=== PATIENT | female | born 1955 | race Two or more races ===

== ENCOUNTER 2019-01-25 17:00 | Outpatient (AMBR) | payer MEDICAID, SELFPAY ==
--- NOTE | 2019-01-08 10:36 | PT.ODAYNRPT ---
PT Outpatient Daily Note Date of Service: January 07, 2019 OP Daily Note Visit Reasons: back pain Outpatient Physical Therapy Treatment Date: 01/07/19 Subjective: Pt reports her back feels about the same as always and the R LE is weak Objective: See F/S for therex Assessment: Pt ambulates without knee flexion likely due to weak quads, decreased neuromuscular activation from the lumbar FX's. Plan: Continue per POC Length of Time (minutes) of Treatment: 30 Minutes Office Procedures PT Procedures PT Date of Service: 01/07/19 Therapeutic Exercise 30 minutes: Yes
--- NOTE | 2019-01-12 18:31 | PTNOTE_ITS ---
PT Outpatient Daily Note Date of Service: January 12, 2019 OP Daily Note Visit Reasons: back pain Outpatient Physical Therapy Treatment Date: 01/12/19 Subjective: Pt reports her back feels about the same as always and the R LE is weak. She brings in MRI disc that was reviewed Objective: See F/S for therex MT: manual cues and perturbations in half-kneeling on foam pad in PBars to improve R LE balance reactions x10' Assessment: Pt ambulates without knee flexion likely due to weak quads, decreased neuromuscular activation from the lumbar FX's. Difficulty with half- kneeling stance with R LE to the front. MRI reveals significant findings of 90 % vertebral body height loss of L2. Plan: Continue per POC Length of Time (minutes) of Treatment: 30 Minutes Office Procedures PT Procedures PT Date of Service: 01/07/19 Therapeutic Exercise 30 minutes: Yes PT Procedures PT Date of Service: 01/12/19 Therapeutic Exercise 15 minutes: Yes Manual Truck Sales Representative 15 minutes: Yes
--- NOTE | 2019-01-25 18:21 | PTNOTE_ITS ---
PT Outpatient Daily Note Date of Service: January 25, 2019 OP Daily Note Visit Reasons: back pain Outpatient Physical Therapy Treatment Date: 01/25/19 Subjective: Pt reports her back feels about the same as always and the R LE is weak. Objective: See F/S for therex MT: manual cues and perturbations in half-kneeling on foam pad in PBars to improve R LE balance reactions x10' Assessment: Pt ambulates without knee flexion likely due to weak quads, decreased neuromuscular activation from the lumbar FX's. Difficulty with half- kneeling stance with R LE to the front. MRI reveals significant findings of 90 % vertebral body height loss of L2. Plan: Continue per POC Length of Time (minutes) of Treatment: 30 Minutes Office Procedures PT Procedures PT Date of Service: 01/07/19 Therapeutic Exercise 30 minutes: Yes PT Procedures PT Date of Service: 01/12/19 Therapeutic Exercise 15 minutes: Yes Manual Fabric Worker Supervisor 15 minutes: Yes PT Procedures PT Date of Service: 01/25/19 Therapeutic Exercise 15 minutes: Yes Manual Fabric Worker Supervisor 15 minutes: Yes
== END 2019-01-28 23:59 | disposition home or self-care (01) ==
PROVIDERS: PCP Internal Medicine Endocrinology, Diabetes & Metabolism; Referring Provider Internal Medicine Endocrinology, Diabetes & Metabolism; Visit Provider Internal Medicine Endocrinology, Diabetes & Metabolism
DX: M81.0 Age-related osteoporosis without current pathological fracture (principal); R53.1 Weakness; R26.2 Difficulty in walking, not elsewhere classified; Z94.4 Liver transplant status; Z96.641 Presence of right artificial hip joint; M54.5 Low back pain
CPT/HCPCS: 97110; 97140

== ENCOUNTER 2019-02-15 17:30 | Outpatient (AMBR) | payer MEDICAID, SELFPAY ==
--- NOTE | 2019-02-02 19:10 | PT.ODAYNRPT ---
PT Outpatient Daily Note Date of Service: February 02, 2019 OP Daily Note Visit Reasons: back pain Outpatient Physical Therapy Treatment Date: 02/02/19 Subjective: About the same as last visit Objective: See F/S for therex Assessment: Good therex tolerance with low tissue irritability today Plan: Continue per POC Length of Time (minutes) of Treatment: 30 Minutes Office Procedures PT Procedures PT Date of Service: 02/02/19 Therapeutic Exercise 30 minutes: Yes
--- NOTE | 2019-02-09 19:07 | PT.ODAYNRPT ---
PT Outpatient Daily Note Date of Service: February 09, 2019 OP Daily Note Pediatric or Adult Patient: Adult PT >13 Visit Reasons: back pain Outpatient Physical Therapy Treatment Date: 02/09/19 Subjective: The LB is hurting a little more today, not sure why Objective: See F/S for therex Assessment: Good therex tolerance with low tissue irritability today but L hip hikes are difficult. Plan: Continue per POC Length of Time (minutes) of Treatment: 30 Minutes Office Procedures PT Procedures PT Date of Service: 02/09/19 Therapeutic Exercise 30 minutes: Yes PT Procedures PT Date of Service: 02/02/19 Therapeutic Exercise 30 minutes: Yes
--- NOTE | 2019-02-15 18:21 | PT.ODAYNRPT ---
PT Outpatient Daily Note Date of Service: February 15, 2019 OP Daily Note Pediatric or Adult Patient: Adult PT >13 Visit Reasons: back pain Outpatient Physical Therapy Treatment Date: 02/15/19 Subjective: Doing ok without significant LBP Objective: See F/S for therex Assessment: Good therex tolerance with low tissue irritability today but L hip hikes are difficult. Plan: Continue per POC Length of Time (minutes) of Treatment: 30 Minutes Office Procedures PT Procedures PT Date of Service: 02/09/19 Therapeutic Exercise 30 minutes: Yes PT Procedures PT Date of Service: 02/02/19 Therapeutic Exercise 30 minutes: Yes PT Procedures PT Date of Service: 02/15/19 Therapeutic Exercise 30 minutes: Yes
== END 2019-02-28 23:59 | disposition home or self-care (01) ==
PROVIDERS: PCP Internal Medicine Endocrinology, Diabetes & Metabolism; Referring Provider Internal Medicine Endocrinology, Diabetes & Metabolism; Visit Provider Internal Medicine Endocrinology, Diabetes & Metabolism
DX: M81.0 Age-related osteoporosis without current pathological fracture (principal); M54.6 Pain in thoracic spine; M54.5 Low back pain; S32.028D Other fracture of second lumbar vertebra, subsequent encounter for fracture with routine healing; R26.2 Difficulty in walking, not elsewhere classified; R53.1 Weakness; X58.XXXD Exposure to other specified factors, subsequent encounter; Z96.641 Presence of right artificial hip joint
CPT/HCPCS: 97110

== ENCOUNTER 2020-01-25 17:00 | Outpatient (AMBR) | payer MEDICAID, SELFPAY ==
--- NOTE | 2020-01-11 17:15 | PT.ODAYNRPT ---
PT Outpatient Daily Note Date of Service: January 11, 2020 OP Daily Note Visit Reasons: back pain Outpatient Physical Therapy Treatment Date: 01/11/20 Subjective: Pt report she has been feeling stronger since starting therapy and has more energy to do things at home Objective: See F/S for therex Assessment: Pt tires easily with light therex but able to do L/S stabilization in supine today with good rotational isometric activation of abdominals. Plan: Continue per POC Length of Time (minutes) of Treatment: 30 Minutes Office Procedures PT Procedures PT Date of Service: 01/11/20 Therapeutic Exercise 30 minutes: Yes
--- NOTE | 2020-01-25 17:13 | PT.ODAYNRPT ---
PT Outpatient Daily Note Date of Service: January 25, 2020 OP Daily Note Pediatric or Adult Patient: Adult PT >13 Visit Reasons: back pain Outpatient Physical Therapy Treatment Date: 01/25/20 Subjective: Pt report she has been feeling stronger since starting therapy and has more energy to do things at home Objective: See F/S for therex Assessment: Pt tires easily with light therex but able to do L/S stabilization in supine today with improving reps into hip abduction. Plan: Continue per POC Length of Time (minutes) of Treatment: 30 Minutes Office Procedures PT Procedures PT Date of Service: 01/25/20 Therapeutic Exercise 30 minutes: Yes PT Procedures PT Date of Service: 01/11/20 Therapeutic Exercise 30 minutes: Yes
== END 2020-01-29 23:59 | disposition home or self-care (01) ==
PROVIDERS: PCP Physician Assistant; Referring Provider Physician Assistant; Visit Provider Internal Medicine Endocrinology, Diabetes & Metabolism
DX: M81.0 Age-related osteoporosis without current pathological fracture (principal); M54.6 Pain in thoracic spine; G89.29 Other chronic pain; R53.1 Weakness; R26.2 Difficulty in walking, not elsewhere classified
CPT/HCPCS: 97110

== ENCOUNTER → 2025-09-30 | Outpatient (CLI) | payer MEDICARE, MEDICAID, SELFPAY ==
[2025-09-30 11:04] LABS: Basophils # (Auto) 0.0 Thou/mm3 (0.0-0.2); Basophils % (Auto) 1 % (0-2.5); Eosinophils # (Auto) 0.1 Thou/mm3 (0.0-0.5); Eosinophils % (Auto) 2 % (0-10); Hematocrit 26.2 % (36.0-46.0); Immature Granulocytes Auto 0.01 Thou/mm3 (0.00-0.00); Lymphocytes # (Auto) 0.6 Thou/mm3 (1.0-4.8); Lymphocytes % (Auto) 12 % (10-50); Mean Corpuscular HGB Conc 29.8 g/dl (31.0-37.0); Mean Corpuscular Hemoglobin 25.7 pg (25.0-35.0); Mean Corpuscular Volume 86 fL (80-100); Monocytes # (Auto) 0.5 Thou/mm3 (0.0-0.8); Monocytes % (Auto) 10 % (0-12); Neutrophils # (Auto) 3.7 Thou/mm3 (1.8-7.7); Neutrophils % (Auto) 75 % (37-80); Nucleated Red Blood Cell # 0.00 Thou/mm3 (0.00-0.00); Nucleated Red Blood Cell % 0 /100 WBC (0); Platelet Count 348 Thou/mm3 (140-440); RDW Standard Deviation 47.9 fL (36.4-46.3); Red Blood Count 3.04 Miln/mm3 (4.00-5.20); White Blood Count 4.9 Thou/mm3 (3.6-11.0)
[2025-09-30 11:15] LABS: Hemoglobin 7.8 g/dL (12.0-16.0)
[2025-09-30 11:16] LABS: Alanine Aminotransferase 16 U/L (10-49); Albumin, Serum 4.1 gm/dL (3.4-4.8); Albumin/Globulin Ratio 2.9 (1.2-2.2); Alkaline Phosphatase 128 U/L (46-116); Anion Gap 10 (7-16); Aspartate Amino Transferase 21 U/L (0-34); BUN/Creatinine Ratio 28 Ratio (12-20); Bilirubin,Total 0.4 mg/dL (0.3-1.2); Blood Urea Nitrogen 25 mg/dL (9-23); Calcium 8.8 mg/dL (8.3-10.6); Calcium (Corrected) 8.8 mg/dL (8.5-10.1); Carbon Dioxide 24.5 mMol/L (20.0-31.0); Chloride 107 mMol/L (98-107); Creatinine (Component) 0.9 mg/dL (0.6-1.3); Globulin 1.4 gm/dL (2.3-3.5); Glucose 137 mg/dL (74-106); Osmolality,Calculated 287 (275-295); Potassium 3.9 mMol/L (3.4-5.1); Sodium 141 mMol/L (136-145); Total Protein 5.5 gm/dL (5.7-8.2); Vancomycin,Trough 19.1 mcg/mL (5.0-10.0); eGFR > 60 See Note
== END | disposition home or self-care (01) ==
PROVIDERS: Referring Provider Internal Medicine; Visit Provider Internal Medicine
DX: Z01.89 Encounter for other specified special examinations (principal)
CPT/HCPCS: 36415; 80053; 80202; 85025

== ENCOUNTER → 2025-10-03 | Outpatient (CLI) | payer MEDICARE, MEDICAID, SELFPAY ==
[2025-10-03 11:18] LABS: Basophils # (Auto) 0.0 Thou/mm3 (0.0-0.2); Basophils % (Auto) 1 % (0-2.5); Eosinophils # (Auto) 0.1 Thou/mm3 (0.0-0.5); Eosinophils % (Auto) 3 % (0-10); Hematocrit 27.3 % (36.0-46.0); Immature Granulocytes Auto 0.02 Thou/mm3 (0.00-0.00); Lymphocytes # (Auto) 0.6 Thou/mm3 (1.0-4.8); Lymphocytes % (Auto) 13 % (10-50); Mean Corpuscular HGB Conc 30.0 g/dl (31.0-37.0); Mean Corpuscular Hemoglobin 25.8 pg (25.0-35.0); Mean Corpuscular Volume 86 fL (80-100); Monocytes # (Auto) 0.6 Thou/mm3 (0.0-0.8); Monocytes % (Auto) 13 % (0-12); Neutrophils # (Auto) 3.4 Thou/mm3 (1.8-7.7); Neutrophils % (Auto) 70 % (37-80); Nucleated Red Blood Cell # 0.00 Thou/mm3 (0.00-0.00); Nucleated Red Blood Cell % 0 /100 WBC (0); Platelet Count 297 Thou/mm3 (140-440); RDW Standard Deviation 47.4 fL (36.4-46.3); Red Blood Count 3.18 Miln/mm3 (4.00-5.20); White Blood Count 4.8 Thou/mm3 (3.6-11.0)
[2025-10-03 11:20] LABS: Hemoglobin 8.2 g/dL (12.0-16.0)
[2025-10-03 11:29] LABS: Alanine Aminotransferase 14 U/L (10-49); Albumin, Serum 4.0 gm/dL (3.4-4.8); Albumin/Globulin Ratio 2.7 (1.2-2.2); Alkaline Phosphatase 133 U/L (46-116); Anion Gap 11 (7-16); Aspartate Amino Transferase 24 U/L (0-34); BUN/Creatinine Ratio 33 Ratio (12-20); Bilirubin,Total 0.5 mg/dL (0.3-1.2); Blood Urea Nitrogen 30 mg/dL (9-23); Calcium 8.7 mg/dL (8.3-10.6); Calcium (Corrected) 8.7 mg/dL (8.5-10.1); Carbon Dioxide 26.0 mMol/L (20.0-31.0); Chloride 104 mMol/L (98-107); Creatinine (Component) 0.9 mg/dL (0.6-1.3); Globulin 1.5 gm/dL (2.3-3.5); Glucose 113 mg/dL (74-106); Osmolality,Calculated 288 (275-295); Potassium 4.1 mMol/L (3.4-5.1); Sodium 141 mMol/L (136-145); Total Protein 5.5 gm/dL (5.7-8.2); Vancomycin,Trough 15.3 mcg/mL (5.0-10.0); eGFR > 60 See Note
== END | disposition home or self-care (01) ==
LOC: SLDO 10:28
PROVIDERS: PCP Internal Medicine; Referring Provider Internal Medicine; Visit Provider Internal Medicine
DX: Z01.89 Encounter for other specified special examinations (principal)
CPT/HCPCS: 36415; 80053; 80202; 85025

== ENCOUNTER → 2025-10-07 | Outpatient (CLI) | payer MEDICARE, MEDICAID, SELFPAY ==
[2025-10-07 10:39] LABS: Basophils # (Auto) 0.1 Thou/mm3 (0.0-0.2); Basophils % (Auto) 1 % (0-2.5); Eosinophils # (Auto) 0.2 Thou/mm3 (0.0-0.5); Eosinophils % (Auto) 4 % (0-10); Hematocrit 27.4 % (36.0-46.0); Immature Granulocytes Auto 0.00 Thou/mm3 (0.00-0.00); Lymphocytes # (Auto) 0.7 Thou/mm3 (1.0-4.8); Lymphocytes % (Auto) 15 % (10-50); Mean Corpuscular HGB Conc 29.9 g/dl (31.0-37.0); Mean Corpuscular Hemoglobin 25.5 pg (25.0-35.0); Mean Corpuscular Volume 85 fL (80-100); Monocytes # (Auto) 0.5 Thou/mm3 (0.0-0.8); Monocytes % (Auto) 12 % (0-12); Neutrophils # (Auto) 3.1 Thou/mm3 (1.8-7.7); Neutrophils % (Auto) 68 % (37-80); Nucleated Red Blood Cell # 0.00 Thou/mm3 (0.00-0.00); Nucleated Red Blood Cell % 0 /100 WBC (0); Platelet Count 235 Thou/mm3 (140-440); RDW Standard Deviation 46.4 fL (36.4-46.3); Red Blood Count 3.22 Miln/mm3 (4.00-5.20); White Blood Count 4.6 Thou/mm3 (3.6-11.0)
[2025-10-07 10:44] LABS: Hemoglobin 8.2 g/dL (12.0-16.0)
[2025-10-07 11:04] LABS: Alanine Aminotransferase 15 U/L (10-49); Albumin, Serum 4.1 gm/dL (3.4-4.8); Albumin/Globulin Ratio 2.9 (1.2-2.2); Alkaline Phosphatase 126 U/L (46-116); Anion Gap 9 (7-16); Aspartate Amino Transferase 23 U/L (0-34); BUN/Creatinine Ratio 42 Ratio (12-20); Bilirubin,Total 0.6 mg/dL (0.3-1.2); Blood Urea Nitrogen 38 mg/dL (9-23); Calcium 8.8 mg/dL (8.3-10.6); Calcium (Corrected) 8.8 mg/dL (8.5-10.1); Carbon Dioxide 25.1 mMol/L (20.0-31.0); Chloride 105 mMol/L (98-107); Creatinine (Component) 0.9 mg/dL (0.6-1.3); Globulin 1.4 gm/dL (2.3-3.5); Glucose 101 mg/dL (74-106); Osmolality,Calculated 286 (275-295); Potassium 4.1 mMol/L (3.4-5.1); Sodium 139 mMol/L (136-145); Total Protein 5.5 gm/dL (5.7-8.2); Vancomycin,Trough 13.6 mcg/mL (5.0-10.0); eGFR > 60 See Note
== END | disposition home or self-care (01) ==
LOC: SLDO 09:27
PROVIDERS: Referring Provider Internal Medicine; Visit Provider Internal Medicine
DX: Z01.89 Encounter for other specified special examinations (principal)
CPT/HCPCS: 36415; 80053; 80202; 85025

== ENCOUNTER → 2025-10-10 | Outpatient (CLI) | payer MEDICARE, MEDICAID, SELFPAY ==
[2025-10-10 10:50] LABS: Basophils # (Auto) 0.0 Thou/mm3 (0.0-0.2); Basophils % (Auto) 1 % (0-2.5); Eosinophils # (Auto) 0.2 Thou/mm3 (0.0-0.5); Eosinophils % (Auto) 4 % (0-10); Hematocrit 27.3 % (36.0-46.0); Hemoglobin 8.3 g/dL (12.0-16.0); Immature Granulocytes Auto 0.01 Thou/mm3 (0.00-0.00); Lymphocytes # (Auto) 0.7 Thou/mm3 (1.0-4.8); Lymphocytes % (Auto) 14 % (10-50); Mean Corpuscular HGB Conc 30.4 g/dl (31.0-37.0); Mean Corpuscular Hemoglobin 25.5 pg (25.0-35.0); Mean Corpuscular Volume 84 fL (80-100); Monocytes # (Auto) 0.6 Thou/mm3 (0.0-0.8); Monocytes % (Auto) 12 % (0-12); Neutrophils # (Auto) 3.3 Thou/mm3 (1.8-7.7); Neutrophils % (Auto) 69 % (37-80); Nucleated Red Blood Cell # 0.00 Thou/mm3 (0.00-0.00); Nucleated Red Blood Cell % 0 /100 WBC (0); Platelet Count 231 Thou/mm3 (140-440); RDW Standard Deviation 46.0 fL (36.4-46.3); Red Blood Count 3.26 Miln/mm3 (4.00-5.20); White Blood Count 4.7 Thou/mm3 (3.6-11.0)
[2025-10-10 11:10] LABS: Alanine Aminotransferase 15 U/L (10-49); Albumin, Serum 4.0 gm/dL (3.4-4.8); Albumin/Globulin Ratio 2.7 (1.2-2.2); Alkaline Phosphatase 114 U/L (46-116); Anion Gap 8 (7-16); Aspartate Amino Transferase 22 U/L (0-34); BUN/Creatinine Ratio 31 Ratio (12-20); Bilirubin,Total 0.4 mg/dL (0.3-1.2); Blood Urea Nitrogen 25 mg/dL (9-23); Calcium 8.6 mg/dL (8.3-10.6); Calcium (Corrected) 8.6 mg/dL (8.5-10.1); Carbon Dioxide 28.0 mMol/L (20.0-31.0); Chloride 104 mMol/L (98-107); Creatinine (Component) 0.8 mg/dL (0.6-1.3); Globulin 1.5 gm/dL (2.3-3.5); Glucose 99 mg/dL (74-106); Osmolality,Calculated 283 (275-295); Potassium 4.2 mMol/L (3.4-5.1); Sodium 140 mMol/L (136-145); Total Protein 5.5 gm/dL (5.7-8.2); Vancomycin,Trough 15.7 mcg/mL (5.0-10.0); eGFR > 60 See Note
== END | disposition home or self-care (01) ==
LOC: SLDO 10:06
PROVIDERS: Referring Provider Internal Medicine; Visit Provider Hospitalist
DX: I10 Essential (primary) hypertension (principal); E10.9 Type 1 diabetes mellitus without complications; E03.9 Hypothyroidism, unspecified; T84.031A Mechanical loosening of internal left hip prosthetic joint, initial encounter; Z94.4 Liver transplant status
CPT/HCPCS: 36415; 80053; 80202; 85025

== ENCOUNTER → 2025-10-12 | Outpatient (CLI) | payer MEDICARE, MEDICAID, SELFPAY ==
[2025-10-12 10:00] LABS: Basophils # (Auto) 0.0 Thou/mm3 (0.0-0.2); Basophils % (Auto) 1 % (0-2.5); Eosinophils # (Auto) 0.2 Thou/mm3 (0.0-0.5); Eosinophils % (Auto) 4 % (0-10); Hematocrit 27.5 % (36.0-46.0); Immature Granulocytes Auto 0.00 Thou/mm3 (0.00-0.00); Lymphocytes # (Auto) 0.7 Thou/mm3 (1.0-4.8); Lymphocytes % (Auto) 16 % (10-50); Mean Corpuscular HGB Conc 30.2 g/dl (31.0-37.0); Mean Corpuscular Hemoglobin 25.0 pg (25.0-35.0); Mean Corpuscular Volume 83 fL (80-100); Monocytes # (Auto) 0.6 Thou/mm3 (0.0-0.8); Monocytes % (Auto) 12 % (0-12); Neutrophils # (Auto) 3.1 Thou/mm3 (1.8-7.7); Neutrophils % (Auto) 68 % (37-80); Nucleated Red Blood Cell # 0.00 Thou/mm3 (0.00-0.00); Nucleated Red Blood Cell % 0 /100 WBC (0); Platelet Count 248 Thou/mm3 (140-440); RDW Standard Deviation 45.3 fL (36.4-46.3); Red Blood Count 3.32 Miln/mm3 (4.00-5.20); White Blood Count 4.6 Thou/mm3 (3.6-11.0)
[2025-10-12 10:01] LABS: Hemoglobin 8.3 g/dL (12.0-16.0)
[2025-10-12 10:20] LABS: Alanine Aminotransferase 14 U/L (10-49); Albumin, Serum 4.0 gm/dL (3.4-4.8); Albumin/Globulin Ratio 2.7 (1.2-2.2); Alkaline Phosphatase 112 U/L (46-116); Anion Gap 9 (7-16); Aspartate Amino Transferase 22 U/L (0-34); BUN/Creatinine Ratio 35 Ratio (12-20); Bilirubin,Total 0.4 mg/dL (0.3-1.2); Blood Urea Nitrogen 28 mg/dL (9-23); Calcium 8.5 mg/dL (8.3-10.6); Calcium (Corrected) 8.5 mg/dL (8.5-10.1); Carbon Dioxide 27.4 mMol/L (20.0-31.0); Chloride 105 mMol/L (98-107); Creatinine (Component) 0.8 mg/dL (0.6-1.3); Globulin 1.5 gm/dL (2.3-3.5); Glucose 104 mg/dL (74-106); Osmolality,Calculated 286 (275-295); Potassium 4.1 mMol/L (3.4-5.1); Sodium 141 mMol/L (136-145); Total Protein 5.5 gm/dL (5.7-8.2); Vancomycin,Trough 16.9 mcg/mL (5.0-10.0); eGFR > 60 See Note
== END | disposition home or self-care (01) ==
LOC: SLDO 09:15
PROVIDERS: Referring Provider Hospitalist; Visit Provider Hospitalist
DX: I10 Essential (primary) hypertension (principal); E10.9 Type 1 diabetes mellitus without complications; E03.9 Hypothyroidism, unspecified
CPT/HCPCS: 36415; 80053; 80202; 85025

== ENCOUNTER → 2025-10-17 | Outpatient (CLI) | payer MEDICARE, MEDICAID, SELFPAY ==
[2025-10-17 10:12] LABS: Basophils # (Auto) 0.0 Thou/mm3 (0.0-0.2); Basophils % (Auto) 1 % (0-2.5); Eosinophils # (Auto) 0.2 Thou/mm3 (0.0-0.5); Eosinophils % (Auto) 3 % (0-10); Hematocrit 29.6 % (36.0-46.0); Hemoglobin 9.1 g/dL (12.0-16.0); Immature Granulocytes Auto 0.02 Thou/mm3 (0.00-0.00); Lymphocytes # (Auto) 0.9 Thou/mm3 (1.0-4.8); Lymphocytes % (Auto) 14 % (10-50); Mean Corpuscular HGB Conc 30.7 g/dl (31.0-37.0); Mean Corpuscular Hemoglobin 25.1 pg (25.0-35.0); Mean Corpuscular Volume 82 fL (80-100); Monocytes # (Auto) 0.7 Thou/mm3 (0.0-0.8); Monocytes % (Auto) 11 % (0-12); Neutrophils # (Auto) 4.4 Thou/mm3 (1.8-7.7); Neutrophils % (Auto) 71 % (37-80); Nucleated Red Blood Cell # 0.00 Thou/mm3 (0.00-0.00); Nucleated Red Blood Cell % 0 /100 WBC (0); Platelet Count 311 Thou/mm3 (140-440); RDW Standard Deviation 44.2 fL (36.4-46.3); Red Blood Count 3.63 Miln/mm3 (4.00-5.20); White Blood Count 6.2 Thou/mm3 (3.6-11.0)
[2025-10-17 10:35] LABS: Alanine Aminotransferase 15 U/L (10-49); Albumin, Serum 4.3 gm/dL (3.4-4.8); Albumin/Globulin Ratio 3.1 (1.2-2.2); Alkaline Phosphatase 103 U/L (46-116); Anion Gap 12 (7-16); Aspartate Amino Transferase 24 U/L (0-34); BUN/Creatinine Ratio 29 Ratio (12-20); Bilirubin,Total 0.5 mg/dL (0.3-1.2); Blood Urea Nitrogen 26 mg/dL (9-23); Calcium 9.0 mg/dL (8.3-10.6); Calcium (Corrected) 9.0 mg/dL (8.5-10.1); Carbon Dioxide 24.8 mMol/L (20.0-31.0); Chloride 103 mMol/L (98-107); Creatinine (Component) 0.9 mg/dL (0.6-1.3); Globulin 1.4 gm/dL (2.3-3.5); Glucose 105 mg/dL (74-106); Osmolality,Calculated 284 (275-295); Potassium 4.1 mMol/L (3.4-5.1); Sodium 140 mMol/L (136-145); Total Protein 5.7 gm/dL (5.7-8.2); Vancomycin,Trough 16.9 mcg/mL (5.0-10.0); eGFR > 60 See Note
== END | disposition home or self-care (01) ==
LOC: SLDO 09:11
PROVIDERS: Referring Provider Hospitalist; Visit Provider Hospitalist
DX: I10 Essential (primary) hypertension (principal); E10.9 Type 1 diabetes mellitus without complications; E03.9 Hypothyroidism, unspecified
CPT/HCPCS: 36415; 80053; 80202; 85025

== ENCOUNTER → 2025-10-21 | Outpatient (CLI) | payer MEDICARE, MEDICAID, SELFPAY ==
[2025-10-21 11:18] LABS: Basophils # (Auto) 0.1 Thou/mm3 (0.0-0.2); Basophils % (Auto) 1 % (0-2.5); Eosinophils # (Auto) 0.2 Thou/mm3 (0.0-0.5); Eosinophils % (Auto) 3 % (0-10); Hematocrit 30.6 % (36.0-46.0); Hemoglobin 9.2 g/dL (12.0-16.0); Immature Granulocytes Auto 0.02 Thou/mm3 (0.00-0.00); Lymphocytes # (Auto) 0.9 Thou/mm3 (1.0-4.8); Lymphocytes % (Auto) 13 % (10-50); Mean Corpuscular HGB Conc 30.1 g/dl (31.0-37.0); Mean Corpuscular Hemoglobin 24.4 pg (25.0-35.0); Mean Corpuscular Volume 81 fL (80-100); Monocytes # (Auto) 0.6 Thou/mm3 (0.0-0.8); Monocytes % (Auto) 9 % (0-12); Neutrophils # (Auto) 4.9 Thou/mm3 (1.8-7.7); Neutrophils % (Auto) 74 % (37-80); Nucleated Red Blood Cell # 0.00 Thou/mm3 (0.00-0.00); Nucleated Red Blood Cell % 0 /100 WBC (0); Platelet Count 305 Thou/mm3 (140-440); RDW Standard Deviation 44.8 fL (36.4-46.3); Red Blood Count 3.77 Miln/mm3 (4.00-5.20); White Blood Count 6.6 Thou/mm3 (3.6-11.0)
[2025-10-21 11:37] LABS: Alanine Aminotransferase 14 U/L (10-49); Albumin, Serum 4.4 gm/dL (3.4-4.8); Albumin/Globulin Ratio 3.1 (1.2-2.2); Alkaline Phosphatase 98 U/L (46-116); Anion Gap 10 (7-16); Aspartate Amino Transferase 26 U/L (0-34); BUN/Creatinine Ratio 29 Ratio (12-20); Bilirubin,Total 0.5 mg/dL (0.3-1.2); Blood Urea Nitrogen 26 mg/dL (9-23); Calcium 8.9 mg/dL (8.3-10.6); Calcium (Corrected) 8.9 mg/dL (8.5-10.1); Carbon Dioxide 26.1 mMol/L (20.0-31.0); Chloride 102 mMol/L (98-107); Creatinine (Component) 0.9 mg/dL (0.6-1.3); Globulin 1.4 gm/dL (2.3-3.5); Glucose 112 mg/dL (74-106); Osmolality,Calculated 281 (275-295); Potassium 4.3 mMol/L (3.4-5.1); Sodium 138 mMol/L (136-145); Total Protein 5.8 gm/dL (5.7-8.2); Vancomycin,Trough 16.4 mcg/mL (5.0-10.0); eGFR > 60 See Note
== END | disposition home or self-care (01) ==
LOC: SLDO 10:21
PROVIDERS: Referring Provider Hospitalist; Visit Provider Hospitalist
DX: I10 Essential (primary) hypertension (principal); E10.9 Type 1 diabetes mellitus without complications; E03.9 Hypothyroidism, unspecified
CPT/HCPCS: 36415; 80053; 80202; 85025